=== PATIENT | female | born 1945 | race Caucasian/White ===

== ENCOUNTER 2020-11-26 08:00 | Day surgery (SDC) | payer OTHER ==
[~2020-11-26] VITALS: Ht 170.2 cm; Wt 74.8 kg
[~2020-11-26 08:00] MED LIST: ASPIRIN EC81 MG PO; CALCIUM + VITA1 EACH PO; EVISTA60 MG PO; LOVAZA1 GM PO; OCUVITE WITH L1 EACH PO; PROLIA60 MG/1 ML IJ; PROTONIX 40MG T40 MG PO; WEEKLY-D1250 MCG PO
[2020-11-26] MEDS ORDERED: CELEXA10 MG PO (08:53)
--- NOTE | 2020-11-26 11:25 | NUR ---
[employer], Right total knee replacement, [facility] Thursday11-27-20 in am, Pt has 3:1 at home, Ordered thru [employer] to bring rolling walker before DC
--- NOTE | 2020-11-26 14:51 | NUR ---
Spoke with Pt about rehab and DME, pt chose [facility] setup for 11-27-24 in the am, [employer] will send eric walker before DC. Spoke with pt after speaking to [facility] in [place] will be $10.00 total pt fine with cost
[2020-11-27 05:42] LABS: BASOPHIL 0.6 % (0-2); EOSINOPHIL 0.1 % (0-7); HCT 29.1 % (37.0-47.0); LYMPHOCYTE 16.4 % (15-48); MCH 32.8 pg (25.0-31.0); MCHC 34.4 g/dL (32.0-36.0); MCV 95.4 fL (78.0-100.0); MONOCYTE 8.7 % (0-12); MPV 10.4 fL (6.0-9.5); NEUTROPHIL 73.9 % (41-80); NRBC 0; RBC 3.05 M/uL (4.20-5.40); RDW 12.7 % (11.5-14.0); WBC 6.9 K/uL (4.0-10.5)
[2020-11-27 05:49] LABS: PLT 101 K/uL (150-400)
[2020-11-27 06:09] LABS: BUN/CREAT RATIO (CALC) 17.6 RATIO; CREATININE 0.68 mg/dL (0.51-0.95)
--- NOTE | 2020-11-27 09:25 | NUR ---
Please fax DC summary to [facility] upon DC ,
[2020-11-27] MEDS ORDERED: OXYCODONE-ACET1 EAC1 PO (09:57)
[2020-11-27] MEDS ORDERED: ULTRA-LIGHT RO1 EACH XX (09:57)
[2020-11-27] MEDS ORDERED: XARELTO10 MG PO (09:57)
[2020-11-27] MEDS ORDERED: FEOSOL325 MG PO (09:57)
[2020-11-27] MEDS ORDERED: ZOFRAN4 M1 PO (09:57)
== END 2020-11-27 15:08 | disposition home health service (06) ==
LOC: FAS 08:00 → FMS 11:43 → FAS 11-27 15:08
PROVIDERS: Legal Medicine
DX: M17.11 Unilateral primary osteoarthritis, right knee (principal); M21.061 Valgus deformity, not elsewhere classified, right knee; I95.81 Postprocedural hypotension; G47.30 Sleep apnea, unspecified; Z20.822 Contact with and (suspected) exposure to COVID-19; Z90.710 Acquired absence of both cervix and uterus; Z98.890 Other specified postprocedural states; Z88.2 Allergy status to sulfonamides; Z88.8 Allergy status to other drugs, medicaments and biological substances; Z79.899 Other long term (current) drug therapy
CPT/HCPCS: 36415; 73560; 80048; 85025; 86850; 86900; 86901; 94010; 94762; 97110; 97162; 97166; 97530-GP; 97535; C1713; C1776; J0171; J0697; J1100; J1885; J2250; J2270; J2370; J2405; J2704; J2795; J3010; J7040; J7120